=== PATIENT | male | born 1945 | race Caucasian/White ===

== ENCOUNTER 2019-04-17 00:33 | Emergency (ER) | payer MEDICARE ==
[~2019-04-17] VITALS: Ht 177.8 cm; Wt 72.6 kg
[~2019-04-17 00:33] MED LIST: ASPI325EC PO; BUPR150ERA PO; METO50ER PO
[2019-04-17] MEDS ORDERED: SYNTHROID25 MCG (00:48)
[2019-04-17] MEDS ORDERED: METO100ER (00:48)
== END 2019-04-17 02:20 | disposition home or self-care (01) ==
LOC: ER 00:33
DX: R20.2 Paresthesia of skin (principal); I48.91 Unspecified atrial fibrillation; Z87.891 Personal history of nicotine dependence
CPT/HCPCS: 99283

== ENCOUNTER → 2020-11-22 | Outpatient (CLI) | payer MEDICARE ==
[~2020-11-22] MED LIST changes: +Depo-Testos200 MG/ML IM; +ELIQUIS5 M3 PO; +METO100ER PO; +SYNTHROID25 MCG PO
== END ==
LOC: LAB 13:12 → LAB SHORT 13:12
DX: D48.5 Neoplasm of uncertain behavior of skin (principal); D03.61 Melanoma in situ of right upper limb, including shoulder; D22.5 Melanocytic nevi of trunk; Z88.5 Allergy status to narcotic agent; Z88.6 Allergy status to analgesic agent; Z88.8 Allergy status to other drugs, medicaments and biological substances
CPT/HCPCS: 88305

== ENCOUNTER → 2020-11-28 | Outpatient (CLI) | payer MEDICARE | END | disposition home or self-care (01) | LOC: LAB SHORT 11:03 | DX: L57.0 Actinic keratosis (principal); L98.2 Febrile neutrophilic dermatosis [Sweet] | CPT/HCPCS: 88305 ==

== ENCOUNTER → 2022-11-12 | Outpatient (CLI) | payer MEDICARE ==
[2022-11-12 17:21] LABS: Creatinine, Urine Random 37.3 mg/dL (27.00-270.00); Microalb/Creat Ratio UR, Rand 15.764 mg/g (0.000-30.000); Microalbumin, Random Urine 5.88 mg/L (0.000-20.000)
== END | disposition home or self-care (01) ==
LOC: LAB SHORT 13:37 → LAB 13:37
PROVIDERS: Hospitalist
DX: R73.03 Prediabetes (principal)
CPT/HCPCS: 82043; 82570

== ENCOUNTER → 2024-04-15 | Outpatient (CLI) | payer MEDICARE | LOC: LAB 15:21 → LAB SHORT 15:21 | DX: N39.0 Urinary tract infection, site not specified (principal) | CPT/HCPCS: 87077; 87086; 87186 ==